=== PATIENT | male | born 1965 | race Caucasian/White ===

== ENCOUNTER 2019-08-25 13:11 | Emergency (ER) | payer MEDICAID ==
[~2019-08-25] VITALS: Ht 177.8 cm; Wt 81.8 kg
--- NOTE | 2019-08-25 13:37 | NUR ---
RELIEVING RN FOR BREAK, PT C/O RT 3RD FINGER SWELLING WITH DARK GROWTH [id number], WAITING FOR REFERRAL TO SURGEON, PT WOULD LIKE IT REMOVED
[2019-08-25] MEDS ORDERED: LIDOcaine 1% w/EPI 1:200,000 injection 10mL vial IM ONE (13:50)
[2019-08-25] MEDS ORDERED: bacitracin 15gm ointment TP ONE (13:50)
[2019-08-25] MEDS ORDERED: LIDOcaine 1% W/epiNEPHrine 1:200,000 10ml vial IJ ONE (14:55)
[2019-08-25 15:34] VITALS: BP 125/99
--- NOTE | 2019-08-25 15:36 | NUR ---
dressed wound to left 3rd digit with bacitricin, 2x2 dylan and azael, pt luz elena esparza, dc'd home
== END 2019-08-25 15:36 | disposition home or self-care (01) ==
LOC: ER 13:12
PROC: 0HBFXZZ Excision of Right Hand Skin, External Approach (ICD-10-PCS; principal; 2019-08-25)
DX: L98.0 Pyogenic granuloma (principal); M79.644 Pain in right finger(s)
CPT/HCPCS: 11420; 99284

== ENCOUNTER 2020-09-05 09:47 | Inpatient (IN) | payer MEDICAID ==
[~2020-09-05] VITALS: Ht 177.8 cm; Wt 72.0 kg
[2020-09-05] MEDS ORDERED: normal saline 1000ML IV soln IVB ONE (10:20)
[2020-09-05] MEDS ORDERED: cloNIDine 0.1 mg tablet PO ONE (10:20)
[2020-09-05 11:05] LABS: BASOPHILS % (AUTO) 0.4 % (0-1); EOSINOPHILS # (AUTO) 0.1 X10'3 (0-0.9); EOSINOPHILS % (AUTO) 1.2 % (0-6); HEMATOCRIT 42.5 % (42.0-52.0); HEMOGLOBIN 14.1 g/dl (14.0-17.9); LYMPHOCYTES # (AUTO) 1.8 X10'3 (1.1-4.8); LYMPHOCYTES % (AUTO) 20.8 % (21-51); MEAN CORPUSCULAR HEMOGLOBIN 27.2 PG (27.0-31.0); MEAN CORPUSCULAR HGB CONC 33.2 g/dL (33.0-36.5); MEAN PLATELET VOLUME 7.9 FL (7.4-10.4); MONOCYTES # (AUTO) 0.8 X10'3 (0-0.9); MONOCYTES % (AUTO) 9.9 % (2-12); NEUTROPHILS # (AUTO) 5.8 X10'3 (1.8-7.7); NEUTROPHILS % (AUTO) 67.7 % (42-75); PLATELET COUNT 283 X10'3 (140-440); RED BLOOD COUNT 5.18 X10'6 (4.70-6.10); RED CELL DISTRIBUTION WIDTH 16.3 % (11.5-14.5); WHITE BLOOD COUNT 8.5 X10'3 (4.5-11.0)
[2020-09-05 11:23] LABS: ALANINE AMINOTRANSFERASE 20 U/L (12-78); ALBUMIN 3.8 G/DL (3.4-5.0); ALBUMIN/GLOBULIN RATIO 0.9 (1.1-1.5); ALKALINE PHOSPHATASE 94 IU/L (46-116); ANION GAP 7 (8-16); ASPARTATE AMINO TRANSFERASE 19 U/L (10-37); BILIRUBIN,TOTAL 0.5 MG/DL (0.1-1.0); BLOOD UREA NITROGEN 19 MG/DL (7-18); BUN/CREATININE RATIO 12.8 (5.4-32.0); CALCIUM 9.8 MG/DL (8.5-10.1); CHLORIDE 101 MMOL/L (99-107); CREATININE 1.48 MG/DL (0.60-1.10); POTASSIUM 3.8 MMOL/L (3.5-5.1); SODIUM 137 MMOL/L (135-145); TOTAL CARBON DIOXIDE 28.6 MMOL/L (24-32); TOTAL PROTEIN 8.1 G/DL (6.4-8.2); eGFR 49 ML/MIN
[2020-09-05 11:28] LABS: GLUCOSE 130 MG/DL (70-104)
[2020-09-05] MEDS ORDERED: iohexol 350MG/ML 100ml bottle IV ONE (12:08)
[2020-09-05] MEDS ORDERED: aspirin 325mg tablet PO ONE (12:55)
[2020-09-05] MEDS ORDERED: ENZY1CAP5 PO (13:57)
[2020-09-05] MEDS ORDERED: ALPH1TAB4 PO (13:57)
[2020-09-05] MEDS ORDERED: MULT-1085 PO (13:57)
[2020-09-05] MEDS ORDERED: TRIA16.911 NS (13:57)
[2020-09-05] MEDS ORDERED: AZEL137S4 NS (13:57)
[2020-09-05] MEDS ORDERED: TURM500C4 PO (13:57)
[2020-09-05] MEDS ORDERED: cloNIDine 0.1 mg tablet PO STA (14:30)
--- NOTE | 2020-09-05 14:31 | NUR ---
VIRTAL SIGNS RECHECKED WHILE DR. TY AT BEDSIDE,RECEIVED NEW ORDER.
[2020-09-05] MEDS ORDERED: morphine 2 MG/ML inj. syringe IV PRN ×3 (14:35→16:05)
--- NOTE | 2020-09-05 14:41 | NUR ---
tele neuro ordered,Story [employer]eller made aware.
--- NOTE | 2020-09-05 14:43 | NUR ---
verbal order received for hydralazine 10mg from Dr. Glass.
[2020-09-05] MEDS ORDERED: hydrALAZINE 20mg/ml inj. IV STA (14:44)
[2020-09-05] MEDS ORDERED: diltiazem-NS 100mg/100ml 100 ML IV ONE (14:50)
--- NOTE | 2020-09-05 15:07 | NUR ---
hydralazieladio reyes dc'zane per Aamir CRISTOBAL.
[2020-09-05] MEDS ORDERED: labetalol 20mg/4ml (5mg/ml) syringe IV ONE (15:50)
[2020-09-05 16:05] LABS: D-DIMER 0.35 MG/L FEU (0-0.50)
[2020-09-05] MEDS ORDERED: acetaminophen 325mg tablet PO PRN (16:05)
[2020-09-05] MEDS ORDERED: ondansetron/PF 4mg/2ml inj IV PRN (16:05)
[2020-09-05] MEDS ORDERED: mag hydrox/Alum hydrox/simeth 30ml oral suspension PO PRN (16:05)
[2020-09-05] MEDS ORDERED: hydrALAZINE 20mg/ml inj. IV PRN (16:05)
[2020-09-05] MEDS ORDERED: HYDROcodone/acetaminophen 10/325mg tab PO PRN (16:05)
[2020-09-05] MEDS ORDERED: HYDROcodone/acetaminophen 5mg/325mg tablet PO PRN (16:05)
[2020-09-05] MEDS ORDERED: magnesium hydroxide 30ml (MOM) UD suspension PO PRN (16:05)
[2020-09-05 16:17] LABS: TOTAL PROTEIN,URINE RANDOM 59.7 MG/DL
[2020-09-05 16:20] LABS: URINE AMPHETAMINE SCREEN NEGATIVE (Neg); URINE BARBITUATE SCREEN NEGATIVE (Neg); URINE BENZODIAZEPINES SCREEN NEGATIVE (Neg); URINE CANNABINOID SCREEN NEGATIVE (Neg); URINE COCAINE SCREEN NEGATIVE (Neg); URINE METHADONE SCREEN NEGATIVE (Neg); URINE OPIATE SCREEN NEGATIVE (Neg); URINE PHENCYCLIDINE SCREEN NEGATIVE (Neg)
[2020-09-05 16:52] LABS: CLARITY,URINE CLEAR (Clear); COLOR,URINE STRAW (Yellow); GLUCOSE, URINE NEGATIVE (Neg); KETONES,URINE NEGATIVE (Neg); LEUKOCYTE ESTERASE ,URINE NEGATIVE (Neg); NITRITES, URINE NEGATIVE (Neg); OCCULT BLOOD,URINE TRACE-LYSED (Neg); PROTEIN,URINE 30 mg/dl (Neg); UROBILINOGEN,URINE 0.2 E.U/dL (0.2-1.0)
[2020-09-05 16:53] LABS: UA COLLECTION TYPE URINAL
[2020-09-05 17:00] LABS: BACTERIA,URINE NONE SEEN /HPF (Neg); MUCUS STRANDS NONE SEEN /LPF (Neg); RBC,URINE 0-2 /HPF (0-2); SQUAMOUS EPITHELIAL CELL,UR NONE SEEN /LPF (FEW); WBC,URINE NONE SEEN /HPF (0-4)
[2020-09-05 17:40] VITALS: BP 161/102
[2020-09-05 18:00] VITALS: BP 140/84
--- NOTE | 2020-09-05 18:11 | NUR ---
Problems reprioritized. Patient report given, questions answered & plan of care reviewed with Anupama CUETO.
--- NOTE | 2020-09-05 18:46 | NUR ---
Patient in room PCU 3023. I have received report from Tess CUETO and had the opportunity to ask questions and assume patient care.
[2020-09-05 22:00] VITALS: BP 150/91
[2020-09-05] MEDS: cloNIDine 0.1 mg tablet PO SCH (23:11)
[2020-09-06 02:00] VITALS: BP 131/77
[2020-09-06 06:00] VITALS: BP 145/95
[2020-09-06 06:09] LABS: ALBUMIN 3.1 G/DL (3.4-5.0); ANION GAP 6 (8-16); BLOOD UREA NITROGEN 23 MG/DL (7-18); BUN/CREATININE RATIO 15.5 (5.4-32.0); CHLORIDE 103 MMOL/L (99-107); CREATININE 1.48 MG/DL (0.60-1.10); GLUCOSE 93 MG/DL (70-104); POTASSIUM 3.6 MMOL/L (3.5-5.1); SODIUM 137 MMOL/L (135-145); TOTAL CARBON DIOXIDE 28.4 MMOL/L (24-32); eGFR 49 ML/MIN
[2020-09-06 06:11] LABS: RED CELL DISTRIBUTION WIDTH 16.8 % (11.5-14.5)
[2020-09-06 06:12] LABS: BASOPHILS % (AUTO) 0.6 % (0-1); EOSINOPHILS # (AUTO) 0.2 X10'3 (0-0.9); HEMATOCRIT 34.9 % (42.0-52.0); HEMOGLOBIN 11.6 g/dl (14.0-17.9); LYMPHOCYTES % (AUTO) 25.2 % (21-51); MEAN CORPUSCULAR HEMOGLOBIN 27.4 PG (27.0-31.0); MEAN CORPUSCULAR HGB CONC 33.1 g/dL (33.0-36.5); MEAN CORPUSCULAR VOLUME 82.8 FL (78-98); MEAN PLATELET VOLUME 8.8 FL (7.4-10.4); MONOCYTES # (AUTO) 0.8 X10'3 (0-0.9); MONOCYTES % (AUTO) 10.1 % (2-12); NEUTROPHILS # (AUTO) 4.8 X10'3 (1.8-7.7); NEUTROPHILS % (AUTO) 61.1 % (42-75); PLATELET COUNT 245 X10'3 (140-440); RED BLOOD COUNT 4.22 X10'6 (4.70-6.10); WHITE BLOOD COUNT 7.9 X10'3 (4.5-11.0)
--- NOTE | 2020-09-06 06:27 | NUR ---
Problems reprioritized. Patient report given, questions answered & plan of care reviewed with Tess CUETO.
[2020-09-06] MEDS: aspirin 81mg tablet.DR PO SCH (07:14)
[2020-09-06] MEDS: cloNIDine 0.1 mg tablet PO SCH ×2 (07:14→17:10)
[2020-09-06] MEDS: nitroGLYCERIN 0.4mg/hour patch TD SCH (07:22)
[2020-09-06] MEDS: acetaminophen 325mg tablet PO PRN (10:51)
[2020-09-06 11:00] VITALS: BP 141/88
--- NOTE | 2020-09-06 11:54 | NUR ---
PAGER ID: [phone] MESSAGE: [phone] Mary Ace RN says you have talked to Neuro MD. Are we still doing the tele consult? Tess [phone]
[2020-09-06] MEDS ORDERED: diphenhydrAMINE 50 mg/ml inj IV ONE (12:40)
[2020-09-06] MEDS ORDERED: ketorolac tromethamine 15mg/ml inj. IV ONE (12:40)
[2020-09-06] MEDS ORDERED: ondansetron/PF 4mg/2ml inj IV ONE (12:40)
[2020-09-06] MEDS ORDERED: levoFLOXACIN 500mg tablet PO ONE (13:35)
[2020-09-06 15:00] VITALS: BP 138/87
--- NOTE | 2020-09-06 15:15 | NUR ---
PAGER ID: [phone] MESSAGE: [phone] Waylon cAe. Patient still having MELVIN despite migraine cocktail. Now c/o congestion as well. Per neurologist notes, next step is 1g valproic acid IV over 5mins. Pls advise. Tess [phone]
[2020-09-06] MEDS ORDERED: DEXTROSE 5% IV ONE (15:50)
[2020-09-06] MEDS ORDERED: WATER IV ONE (15:50)
[2020-09-06] MEDS ORDERED: VALPROATE SOD IV ONE (15:50)
[2020-09-06 18:00] VITALS: BP 154/98
--- NOTE | 2020-09-06 18:33 | NUR ---
Patient in room PCU 3023. I have received report from Tess CUETO and had the opportunity to ask questions and assume patient care.
--- NOTE | 2020-09-06 18:33 | NUR ---
Problems reprioritized. Patient report given, questions answered & plan of care reviewed with Sean CUETO.
--- NOTE | 2020-09-06 18:34 | NUR ---
Patient in room PCU 3023. I have received report from Tess CUETO and had the opportunity to ask questions and assume patient care.
--- NOTE | 2020-09-06 18:54 | NUR ---
PAGER ID: [phone] MESSAGE: [phone]. Ronen Ace. Pt has headaches still after valproic treatment. can we do the Dexamethasone 10mg 1x per neurologist recommendation? Sean CUETO [phone]
[2020-09-06] MEDS ORDERED: dexamethasone sod phosphate 10mg/ml inj IV STA (19:28)
[2020-09-06 22:00] VITALS: BP 138/90
[2020-09-07] MEDS: cloNIDine 0.1 mg tablet PO SCH ×4 (00:51→23:28)
[2020-09-07 02:00] VITALS: BP 142/91
[2020-09-07 06:00] VITALS: BP 148/96
[2020-09-07 06:12] LABS: BASOPHILS % (AUTO) 0.2 % (0-1); EOSINOPHILS % (AUTO) 0.1 % (0-6); HEMOGLOBIN 12.5 g/dl (14.0-17.9); LYMPHOCYTES # (AUTO) 1.1 X10'3 (1.1-4.8); LYMPHOCYTES % (AUTO) 20.5 % (21-51); MEAN CORPUSCULAR HEMOGLOBIN 28.1 PG (27.0-31.0); MEAN CORPUSCULAR HGB CONC 33.9 g/dL (33.0-36.5); MEAN CORPUSCULAR VOLUME 83.1 FL (78-98); MEAN PLATELET VOLUME 8.5 FL (7.4-10.4); MONOCYTES # (AUTO) 0.1 X10'3 (0-0.9); MONOCYTES % (AUTO) 1.9 % (2-12); NEUTROPHILS % (AUTO) 77.3 % (42-75); PLATELET COUNT 250 X10'3 (140-440); RED BLOOD COUNT 4.46 X10'6 (4.70-6.10); RED CELL DISTRIBUTION WIDTH 16.5 % (11.5-14.5); WHITE BLOOD COUNT 5.2 X10'3 (4.5-11.0)
--- NOTE | 2020-09-07 06:13 | NUR ---
Problems reprioritized. Patient report given, questions answered & plan of care reviewed with Amaris CUETO.
[2020-09-07 06:31] LABS: ALBUMIN 3.1 G/DL (3.4-5.0); ANION GAP 8 (8-16); BLOOD UREA NITROGEN 28 MG/DL (7-18); BUN/CREATININE RATIO 15.4 (5.4-32.0); CALCIUM 9.5 MG/DL (8.5-10.1); CHLORIDE 103 MMOL/L (99-107); CREATININE 1.82 MG/DL (0.60-1.10); GLUCOSE 141 MG/DL (70-104); POTASSIUM 4.3 MMOL/L (3.5-5.1); SODIUM 137 MMOL/L (135-145); TOTAL CARBON DIOXIDE 26.5 MMOL/L (24-32); eGFR 39 ML/MIN
--- NOTE | 2020-09-07 06:31 | NUR ---
I had a Student Nurse this shift and agree with all their assessments and charting while overlooking and monitoring the student.
--- NOTE | 2020-09-07 06:45 | NUR ---
Patient in room PCU 3023. I have received report from RN Sean/ student and had the opportunity to ask questions and assume patient care. Pt was NPO at midnight for scheduled Nuc medicine and renal ultrasound, however ate banana prior to my shift, will message
[2020-09-07] MEDS: aspirin 81mg tablet.DR PO SCH (08:00)
[2020-09-07 08:02] LABS: TOTAL CELLS COUNTED 100
[2020-09-07 08:04] LABS: PLATELET ESTIMATE NORMAL
[2020-09-07] MEDS: nitroGLYCERIN 0.4mg/hour patch TD SCH (08:10)
[2020-09-07 11:00] VITALS: BP 147/95
[2020-09-07] MEDS ORDERED: acetylcysteine 200 MG/ml 4ml vial PO ONE (11:00)
[2020-09-07] MEDS ORDERED: levoFLOXACIN 500mg tablet PO SCH (11:00)
[2020-09-07] MEDS ORDERED: sodium bicarbonate (8.4%) inj. 150 MEQ in dextrose 5%-water 1,000 ML IV ONE (11:30)
[2020-09-07] MEDS: amLODIPine 5mg tablet PO SCH (14:37)
[2020-09-07] MEDS: acetaminophen 325mg tablet PO PRN (14:38)
[2020-09-07 15:00] VITALS: BP 130/80
[2020-09-07 15:03] LABS: ALBUMIN 3.2 G/DL (3.4-5.0); ANION GAP 5 (8-16); BLOOD UREA NITROGEN 30 MG/DL (7-18); BUN/CREATININE RATIO 15.8 (5.4-32.0); CALCIUM 9.4 MG/DL (8.5-10.1); CHLORIDE 101 MMOL/L (99-107); GLUCOSE 128 MG/DL (70-104); SODIUM 137 MMOL/L (135-145); TOTAL CARBON DIOXIDE 30.8 MMOL/L (24-32); eGFR 37 ML/MIN
[2020-09-07 18:00] VITALS: BP 132/91
--- NOTE | 2020-09-07 18:33 | NUR ---
Patient in room PCU 3023. I have received report from Amaris CUETO and had the opportunity to ask questions and assume patient care.
[2020-09-07] MEDS ORDERED: tizanidine 4mg tablet PO PRN (18:50)
--- NOTE | 2020-09-07 19:29 | NUR ---
Problems reprioritized. Patient report given, questions answered & plan of care reviewed with
[2020-09-07] MEDS ORDERED: acetylcysteine 200 MG/ml 4ml vial PO SCH (20:00)
[2020-09-07 22:00] VITALS: BP 104/62
[2020-09-08 02:00] VITALS: BP 136/88
[2020-09-08 06:00] VITALS: BP 147/93
[2020-09-08 06:09] LABS: BASOPHILS % (AUTO) 0.3 % (0-1); EOSINOPHILS # (AUTO) 0.1 X10'3 (0-0.9); EOSINOPHILS % (AUTO) 0.9 % (0-6); HEMATOCRIT 35.7 % (42.0-52.0); LYMPHOCYTES # (AUTO) 2.4 X10'3 (1.1-4.8); LYMPHOCYTES % (AUTO) 31.8 % (21-51); MEAN CORPUSCULAR HEMOGLOBIN 27.9 PG (27.0-31.0); MEAN CORPUSCULAR HGB CONC 33.5 g/dL (33.0-36.5); MEAN CORPUSCULAR VOLUME 83.5 FL (78-98); MEAN PLATELET VOLUME 8.4 FL (7.4-10.4); MONOCYTES # (AUTO) 0.7 X10'3 (0-0.9); MONOCYTES % (AUTO) 9.4 % (2-12); NEUTROPHILS # (AUTO) 4.3 X10'3 (1.8-7.7); NEUTROPHILS % (AUTO) 57.6 % (42-75); PLATELET COUNT 257 X10'3 (140-440); RED BLOOD COUNT 4.28 X10'6 (4.70-6.10); RED CELL DISTRIBUTION WIDTH 17.1 % (11.5-14.5); WHITE BLOOD COUNT 7.6 X10'3 (4.5-11.0)
--- NOTE | 2020-09-08 06:20 | NUR ---
Problems reprioritized. Patient report given, questions answered & plan of care reviewed with Amaris CUETO.
[2020-09-08 06:31] LABS: ALBUMIN 3.1 G/DL (3.4-5.0); ANION GAP 6 (8-16); BLOOD UREA NITROGEN 31 MG/DL (7-18); BUN/CREATININE RATIO 16.8 (5.4-32.0); CHLORIDE 103 MMOL/L (99-107); CREATININE 1.85 MG/DL (0.60-1.10); GLUCOSE 95 MG/DL (70-104); POTASSIUM 3.4 MMOL/L (3.5-5.1); SODIUM 141 MMOL/L (135-145); TOTAL CARBON DIOXIDE 32.4 MMOL/L (24-32); eGFR 38 ML/MIN
[2020-09-08 06:42] LABS: CLARITY,URINE CLEAR (Clear); COLOR,URINE YELLOW (Yellow); GLUCOSE, URINE NEGATIVE (Neg); KETONES,URINE NEGATIVE (Neg); LEUKOCYTE ESTERASE ,URINE NEGATIVE (Neg); NITRITES, URINE NEGATIVE (Neg); OCCULT BLOOD,URINE NEGATIVE (Neg); PROTEIN,URINE NEGATIVE (Neg); UROBILINOGEN,URINE 0.2 E.U/dL (0.2-1.0)
[2020-09-08 06:43] LABS: UA COLLECTION TYPE CLN CATCH MIDSTREAM
[2020-09-08 06:45] LABS: TOTAL PROTEIN,URINE RANDOM 12.6 MG/DL
[2020-09-08] MEDS: cloNIDine 0.1 mg tablet PO SCH (09:00)
[2020-09-08] MEDS: aspirin 81mg tablet.DR PO SCH (09:00)
[2020-09-08 09:01] VITALS: BP_SYST 150
[2020-09-08] MEDS: amLODIPine 5mg tablet PO SCH (09:01)
[2020-09-08] MEDS: nitroGLYCERIN 0.4mg/hour patch TD SCH (09:02)
[2020-09-08] MEDS ORDERED: METO-395 PO (10:16)
[2020-09-08] MEDS ORDERED: BACL-11 PO (10:16)
[2020-09-08] MEDS ORDERED: LEVO500T89 PO (10:16)
[2020-09-08] MEDS ORDERED: ASPI-1071 PO (10:16)
[2020-09-08 10:40] LABS: CHOL/HDL RATIO 3.1 (0.00-4.99); CHOLESTEROL 143 MG/DL (0-200); HDL CHOLESTEROL 46 MG/DL (35-60); LDL CHOLESTEROL 80 MG/DL (50-100); TRIGLYCERIDES 112 MG/DL (20-135)
--- NOTE | 2020-09-08 11:08 | NUR ---
spoke with DR. Glass, confirmed lipid panel to be added on to AM labs, and confirmed with lab. Waiting for pending results and will page DR when results are available for discharge. Pt has a list of requests for discharge paper work and is requesting notes from . I will only print up appropriate information for pt discharge
[2020-09-08] MEDS ORDERED: CLON0.1T2 PO (11:18)
[2020-09-09 10:31] LABS: IMMUNOGLOBULIN A, QN, SERUM 94 mg/dL (90-386); IMMUNOGLOBULIN G, QN, SERUM 1029 mg/dL (603-1613); IMMUNOGLOBULIN M, QN, SERUM 329 mg/dL (20-172)
[2020-09-09 15:58] LABS: A/G RATIO 0.9 (0.7-1.7); GAMMA GLOBULIN 1.3 g/dL (0.4-1.8); GLOBULIN, TOTAL 3.3 g/dL (2.2-3.9); M-SPIKE Not Observed g/dL (Not Observed); PROTEIN, TOTAL, SERUM 6.3 g/dL (6.0-8.5)
== END 2020-09-08 12:20 | disposition home or self-care (01) | DRG 190 ==
LOC: ER 09:48 → ED HOLD 16:04 → EDBEDREQ 16:55 → PCU 3S 17:41
PROVIDERS: ADMIT Internal Medicine; ATTEND Internal Medicine
PROC: B3251ZZ Computerized Tomography (CT Scan) of Bilateral Common Carotid Arteries using Low Osmolar Contrast (ICD-10-PCS; 2020-09-05)
PROC: B32G1ZZ Computerized Tomography (CT Scan) of Bilateral Vertebral Arteries using Low Osmolar Contrast (ICD-10-PCS; 2020-09-05)
PROC: B3281ZZ Computerized Tomography (CT Scan) of Bilateral Internal Carotid Arteries using Low Osmolar Contrast (ICD-10-PCS; 2020-09-05)
PROC: CB121ZZ Planar Nuclear Medicine Imaging of Lungs and Bronchi using Technetium 99m (Tc-99m) (ICD-10-PCS; principal; 2020-09-06)
PROC: CT131ZZ Planar Nuclear Medicine Imaging of Kidneys, Ureters and Bladder using Technetium 99m (Tc-99m) (ICD-10-PCS; 2020-09-07)
DX: I21.9 Acute myocardial infarction, unspecified (principal); I16.1 Hypertensive emergency; J01.00 Acute maxillary sinusitis, unspecified; K40.20 Bilateral inguinal hernia, without obstruction or gangrene, not specified as recurrent; N18.30 Chronic kidney disease, stage 3 unspecified; I12.9 Hypertensive chronic kidney disease with stage 1 through stage 4 chronic kidney disease, or unspecified chronic kidney disease; N17.9 Acute kidney failure, unspecified; Z79.82 Long term (current) use of aspirin; Z81.8 Family history of other mental and behavioral disorders; Z79.899 Other long term (current) drug therapy; Z88.2 Allergy status to sulfonamides
CPT/HCPCS: 36415; 70496; 71045; 74176; 78580; 78707; 80048; 80053; 80061; 80305; 81001; 81003; 82088; 82570; 82784; 83880; 84133; 84155; 84156; 84165; 84166; 84244; 84300; 84484; 84540; 85007; 85025; 85379; 85651; 87081; 87635; 93005; 93306; 93970; 93975; 99285; A9540; A9562; C9803; G0378; J1100; J1200; J1885; J2270; J2405; J3490; J7030; J7060; Q9967

== ENCOUNTER 2020-10-11 22:14 | Emergency (ER) | payer MEDICAID ==
[~2020-10-11] VITALS: Ht 177.8 cm; Wt 68.2 kg
[~2020-10-11 22:14] MED LIST: ALPH1TAB4 PO; ASPI-1071 PO; AZEL137S4 NS; BACL-11 PO; CLON0.1T2 PO; ENZY1CAP5 PO; LEVO500T89 PO; METO-395 PO; MULT-1085 PO; TRIA16.911 NS; TURM500C4 PO
[2020-10-11 23:50] VITALS: BP 148/87
== END 2020-10-11 23:35 | disposition home or self-care (01) ==
LOC: ER 22:15
DX: I10 Essential (primary) hypertension (principal); Z60.9 Problem related to social environment, unspecified; Z88.2 Allergy status to sulfonamides; Z79.82 Long term (current) use of aspirin; Z79.2 Long term (current) use of antibiotics; Z79.899 Other long term (current) drug therapy
CPT/HCPCS: 93005; 99283

== ENCOUNTER 2020-10-23 05:54 | Emergency (ER) | payer MEDICAID ==
[~2020-10-23] VITALS: Ht 177.8 cm; Wt 68.2 kg
[2020-10-23] MEDS ORDERED: nitroGLYCERIN 0.4mg SUBLingual tab SL PRN (06:05)
--- NOTE | 2020-10-23 06:26 | NUR ---
DENIES CHEST PAIN AT THIS TIME.
[2020-10-23 06:27] LABS: BASOPHILS % (AUTO) 0.5 % (0-1); EOSINOPHILS # (AUTO) 0.4 X10'3 (0-0.9); EOSINOPHILS % (AUTO) 4.6 % (0-6); HEMATOCRIT 43.3 % (42.0-52.0); HEMOGLOBIN 14.8 g/dl (14.0-17.9); LYMPHOCYTES # (AUTO) 2.9 X10'3 (1.1-4.8); LYMPHOCYTES % (AUTO) 31.2 % (21-51); MEAN CORPUSCULAR HEMOGLOBIN 28.7 PG (27.0-31.0); MEAN CORPUSCULAR HGB CONC 34.3 g/dL (33.0-36.5); MEAN CORPUSCULAR VOLUME 83.7 FL (78-98); MEAN PLATELET VOLUME 8.2 FL (7.4-10.4); MONOCYTES # (AUTO) 0.7 X10'3 (0-0.9); MONOCYTES % (AUTO) 7.6 % (2-12); NEUTROPHILS # (AUTO) 5.1 X10'3 (1.8-7.7); NEUTROPHILS % (AUTO) 56.1 % (42-75); PLATELET COUNT 284 X10'3 (140-440); RED BLOOD COUNT 5.17 X10'6 (4.70-6.10); RED CELL DISTRIBUTION WIDTH 14.8 % (11.5-14.5); WHITE BLOOD COUNT 9.2 X10'3 (4.5-11.0)
[2020-10-23 06:35] LABS: ALANINE AMINOTRANSFERASE 32 U/L (12-78); ALBUMIN 4.3 G/DL (3.4-5.0); ALBUMIN/GLOBULIN RATIO 1.1 (1.1-1.5); ALKALINE PHOSPHATASE 70 IU/L (46-116); ANION GAP 6 (8-16); ASPARTATE AMINO TRANSFERASE 18 U/L (10-37); BILIRUBIN,TOTAL 0.4 MG/DL (0.1-1.0); BLOOD UREA NITROGEN 19 MG/DL (7-18); BUN/CREATININE RATIO 14.6 (5.4-32.0); CALCIUM 9.7 MG/DL (8.5-10.1); CHLORIDE 103 MMOL/L (99-107); POTASSIUM 3.8 MMOL/L (3.5-5.1); SODIUM 140 MMOL/L (135-145); TOTAL PROTEIN 8.2 G/DL (6.4-8.2); eGFR 57 ML/MIN
[2020-10-23 06:48] LABS: GLUCOSE 108 MG/DL (70-104)
--- NOTE | 2020-10-23 07:49 | NUR ---
PATEINT DENIES CHEST PAIN AT THIS TIME.
--- NOTE | 2020-10-23 07:54 | NUR ---
GIVEN BREAKFAST,OK'D BY DR. BENTLEY.
--- NOTE | 2020-10-23 08:58 | NUR ---
blood sample for troponin drawn at this time.
[2020-10-23 10:26] VITALS: BP 156/92
== END 2020-10-23 10:29 | disposition home or self-care (01) ==
LOC: ER 05:55
DX: R07.9 Chest pain, unspecified (principal); I12.9 Hypertensive chronic kidney disease with stage 1 through stage 4 chronic kidney disease, or unspecified chronic kidney disease; N18.9 Chronic kidney disease, unspecified; Z88.2 Allergy status to sulfonamides; Z79.899 Other long term (current) drug therapy
CPT/HCPCS: 36415; 71045; 80053; 83880; 84484; 85025; 93005; 99285

== ENCOUNTER 2020-10-28 01:44 | Emergency (ER) | payer MEDICAID ==
[~2020-10-28] VITALS: Ht 177.8 cm; Wt 68.2 kg
[2020-10-28 02:34] LABS: BASOPHILS % (AUTO) 0.5 % (0-1); EOSINOPHILS # (AUTO) 0.4 X10'3 (0-0.9); HEMATOCRIT 40.3 % (42.0-52.0); HEMOGLOBIN 13.6 g/dl (14.0-17.9); LYMPHOCYTES # (AUTO) 2.4 X10'3 (1.1-4.8); LYMPHOCYTES % (AUTO) 27.8 % (21-51); MEAN CORPUSCULAR HEMOGLOBIN 28.1 PG (27.0-31.0); MEAN CORPUSCULAR HGB CONC 33.7 g/dL (33.0-36.5); MEAN CORPUSCULAR VOLUME 83.2 FL (78-98); MEAN PLATELET VOLUME 7.7 FL (7.4-10.4); MONOCYTES # (AUTO) 0.8 X10'3 (0-0.9); MONOCYTES % (AUTO) 9.5 % (2-12); NEUTROPHILS # (AUTO) 4.9 X10'3 (1.8-7.7); NEUTROPHILS % (AUTO) 57.2 % (42-75); PLATELET COUNT 261 X10'3 (140-440); RED BLOOD COUNT 4.84 X10'6 (4.70-6.10); RED CELL DISTRIBUTION WIDTH 15.2 % (11.5-14.5); WHITE BLOOD COUNT 8.6 X10'3 (4.5-11.0)
[2020-10-28] MEDS: aspirin 81mg tab.chew PO ONE ×2 (02:38→02:46)
[2020-10-28 02:47] LABS: PARTIAL THROMBOPLASTIN TIME 29 SECONDS (22-32)
[2020-10-28 02:51] LABS: ALANINE AMINOTRANSFERASE 36 U/L (12-78); ALBUMIN 3.9 G/DL (3.4-5.0); ALBUMIN/GLOBULIN RATIO 1.1 (1.1-1.5); ALKALINE PHOSPHATASE 67 IU/L (46-116); ANION GAP 6 (8-16); ASPARTATE AMINO TRANSFERASE 23 U/L (10-37); BILIRUBIN,TOTAL 0.3 MG/DL (0.1-1.0); BLOOD UREA NITROGEN 18 MG/DL (7-18); BUN/CREATININE RATIO 12.8 (5.4-32.0); CALCIUM 9.2 MG/DL (8.5-10.1); CHLORIDE 106 MMOL/L (99-107); CREATININE 1.41 MG/DL (0.60-1.10); GLUCOSE 99 MG/DL (70-104); POTASSIUM 3.8 MMOL/L (3.5-5.1); SODIUM 143 MMOL/L (135-145); TOTAL CARBON DIOXIDE 30.8 MMOL/L (24-32); TOTAL PROTEIN 7.6 G/DL (6.4-8.2); eGFR 52 ML/MIN
[2020-10-28 03:01] LABS: MAGNESIUM 2.3 MG/DL (1.5-2.4)
[2020-10-28] MEDS ORDERED: magnesium oxide 400mg tablet PO ONE (03:35)
[2020-10-28 03:48] VITALS: BP 172/110
== END 2020-10-28 03:51 | disposition home or self-care (01) ==
LOC: ER 01:45
DX: R00.2 Palpitations (principal); I10 Essential (primary) hypertension; N18.9 Chronic kidney disease, unspecified; Z60.9 Problem related to social environment, unspecified; Z79.2 Long term (current) use of antibiotics; Z79.82 Long term (current) use of aspirin; Z79.899 Other long term (current) drug therapy; Z88.2 Allergy status to sulfonamides
CPT/HCPCS: 36415; 71045; 80053; 83735; 83880; 84443; 84484; 85025; 85610; 85730; 93005; 99285

== ENCOUNTER 2020-11-01 23:33 | Emergency (ER) | payer MEDICAID ==
[~2020-11-01] VITALS: Ht 177.8 cm; Wt 68.1 kg
[2020-11-02 00:04] LABS: BASOPHILS # (AUTO) 0.1 X10'3 (0-0.2); BASOPHILS % (AUTO) 1.4 % (0-1); EOSINOPHILS # (AUTO) 0.4 X10'3 (0-0.9); EOSINOPHILS % (AUTO) 4.3 % (0-6); HEMOGLOBIN 13.3 g/dl (14.0-17.9); LYMPHOCYTES # (AUTO) 2.7 X10'3 (1.1-4.8); MEAN CORPUSCULAR HEMOGLOBIN 28.8 PG (27.0-31.0); MEAN CORPUSCULAR HGB CONC 34.1 g/dL (33.0-36.5); MEAN CORPUSCULAR VOLUME 84.3 FL (78-98); MEAN PLATELET VOLUME 7.9 FL (7.4-10.4); MONOCYTES # (AUTO) 0.9 X10'3 (0-0.9); MONOCYTES % (AUTO) 10.4 % (2-12); NEUTROPHILS # (AUTO) 4.5 X10'3 (1.8-7.7); NEUTROPHILS % (AUTO) 51.9 % (42-75); PLATELET COUNT 261 X10'3 (140-440); RED BLOOD COUNT 4.63 X10'6 (4.70-6.10); WHITE BLOOD COUNT 8.6 X10'3 (4.5-11.0)
[2020-11-02 00:17] LABS: ALANINE AMINOTRANSFERASE 29 U/L (12-78); ALBUMIN 3.9 G/DL (3.4-5.0); ALBUMIN/GLOBULIN RATIO 1.1 (1.1-1.5); ALKALINE PHOSPHATASE 65 IU/L (46-116); ANION GAP 5 (8-16); ASPARTATE AMINO TRANSFERASE 17 U/L (10-37); BILIRUBIN,TOTAL 0.7 MG/DL (0.1-1.0); BLOOD UREA NITROGEN 20 MG/DL (7-18); BUN/CREATININE RATIO 14.4 (5.4-32.0); CALCIUM 9.4 MG/DL (8.5-10.1); CHLORIDE 104 MMOL/L (99-107); CREATININE 1.39 MG/DL (0.60-1.10); GLUCOSE 109 MG/DL (70-104); POTASSIUM 3.9 MMOL/L (3.5-5.1); SODIUM 140 MMOL/L (135-145); TOTAL CARBON DIOXIDE 30.7 MMOL/L (24-32); TOTAL PROTEIN 7.4 G/DL (6.4-8.2); eGFR 53 ML/MIN
[2020-11-02 01:56] VITALS: BP 144/89
== END 2020-11-02 02:15 | disposition home or self-care (01) ==
LOC: ER 23:33
DX: I49.3 Ventricular premature depolarization (principal); R00.2 Palpitations; R07.89 Other chest pain; R42 Dizziness and giddiness; I12.9 Hypertensive chronic kidney disease with stage 1 through stage 4 chronic kidney disease, or unspecified chronic kidney disease; N18.9 Chronic kidney disease, unspecified; F41.9 Anxiety disorder, unspecified; Z60.2 Problems related to living alone; Z88.2 Allergy status to sulfonamides; Z79.82 Long term (current) use of aspirin; Z79.2 Long term (current) use of antibiotics; Z79.899 Other long term (current) drug therapy
CPT/HCPCS: 36415; 80053; 83880; 84484; 85025; 93005; 99284

== ENCOUNTER 2021-03-26 22:25 | Emergency (ER) | payer MEDICAID ==
[~2021-03-26] VITALS: Ht 177.8 cm; Wt 72.7 kg
[2021-03-26 23:07] LABS: BASOPHILS # (AUTO) 0.1 X10'3 (0-0.2); BASOPHILS % (AUTO) 0.8 % (0-1); EOSINOPHILS # (AUTO) 0.5 X10'3 (0-0.9); EOSINOPHILS % (AUTO) 5.9 % (0-6); HEMATOCRIT 38.8 % (42.0-52.0); HEMOGLOBIN 13.3 g/dl (14.0-17.9); LYMPHOCYTES # (AUTO) 2.8 X10'3 (1.1-4.8); LYMPHOCYTES % (AUTO) 33.5 % (21-51); MEAN CORPUSCULAR HEMOGLOBIN 30.6 PG (27.0-31.0); MEAN CORPUSCULAR HGB CONC 34.2 g/dL (33.0-36.5); MEAN CORPUSCULAR VOLUME 89.5 FL (78-98); MONOCYTES % (AUTO) 12.6 % (2-12); NEUTROPHILS # (AUTO) 3.9 X10'3 (1.8-7.7); NEUTROPHILS % (AUTO) 47.2 % (42-75); PLATELET COUNT 286 X10'3 (140-440); RED BLOOD COUNT 4.34 X10'6 (4.70-6.10); RED CELL DISTRIBUTION WIDTH 12.5 % (11.5-14.5); WHITE BLOOD COUNT 8.3 X10'3 (4.5-11.0)
[2021-03-26 23:21] LABS: ALANINE AMINOTRANSFERASE 25 U/L (12-78); ALBUMIN 3.6 G/DL (3.4-5.0); ALBUMIN/GLOBULIN RATIO 1.1 (1.1-1.5); ALKALINE PHOSPHATASE 69 IU/L (46-116); ANION GAP 4 (8-16); ASPARTATE AMINO TRANSFERASE 19 U/L (10-37); BILIRUBIN,TOTAL 0.4 MG/DL (0.1-1.0); BLOOD UREA NITROGEN 27 MG/DL (7-18); BUN/CREATININE RATIO 21.3 (5.4-32.0); CHLORIDE 105 MMOL/L (99-107); CREATININE 1.27 MG/DL (0.60-1.10); GLUCOSE 105 MG/DL (70-104); SODIUM 141 MMOL/L (135-145); TOTAL PROTEIN 6.9 G/DL (6.4-8.2); eGFR 59 ML/MIN
[2021-03-26 23:24] LABS: TROPONIN I < 0.04 NG/ML (0.0-0.05)
[2021-03-26 23:44] LABS: MAGNESIUM 2.2 MG/DL (1.5-2.4)
[2021-03-26 23:46] LABS: ETHANOL < 0.010 GM/DL (0.0-0.010)
[2021-03-27] MEDS ORDERED: carVEDilol 3.125mg tablet PO ONE (00:10)
[2021-03-27 00:13] LABS: URINE AMPHETAMINE SCREEN NEGATIVE (Neg); URINE BARBITUATE SCREEN NEGATIVE (Neg); URINE BENZODIAZEPINES SCREEN NEGATIVE (Neg); URINE CANNABINOID SCREEN NEGATIVE (Neg); URINE COCAINE SCREEN NEGATIVE (Neg); URINE METHADONE SCREEN NEGATIVE (Neg); URINE OPIATE SCREEN NEGATIVE (Neg); URINE PHENCYCLIDINE SCREEN NEGATIVE (Neg)
[2021-03-27 00:28] VITALS: BP 171/90
== END 2021-03-27 00:30 | disposition home or self-care (01) ==
LOC: ER 22:25
DX: R00.2 Palpitations (principal); R53.83 Other fatigue; I12.9 Hypertensive chronic kidney disease with stage 1 through stage 4 chronic kidney disease, or unspecified chronic kidney disease; N18.9 Chronic kidney disease, unspecified; F41.9 Anxiety disorder, unspecified; Z60.2 Problems related to living alone; Z88.2 Allergy status to sulfonamides; Z79.82 Long term (current) use of aspirin; Z79.2 Long term (current) use of antibiotics; Z79.899 Other long term (current) drug therapy
CPT/HCPCS: 36415; 71045; 80053; 80305; 80320; 83735; 83880; 84484; 85025; 93005; 99285

== ENCOUNTER 2023-02-09 00:16 | Emergency (ER) | payer MEDICAID ==
[~2023-02-09] VITALS: Ht 177.8 cm; Wt 77.3 kg
[~2023-02-09 00:16] MED LIST changes: +LEVO-65 PO; -LEVO500T89 PO
[2023-02-09 00:29] LABS: BASOPHILS # (AUTO) 0.1 X10'3 (0-0.2); BASOPHILS % (AUTO) 0.5 % (0-1); EOSINOPHILS # (AUTO) 0.5 X10'3 (0-0.9); EOSINOPHILS % (AUTO) 4.2 % (0-6); HEMATOCRIT 43.9 % (42.0-52.0); HEMOGLOBIN 14.6 g/dl (14.0-17.9); LYMPHOCYTES # (AUTO) 1.8 X10'3 (1.1-4.8); LYMPHOCYTES % (AUTO) 16.5 % (21-51); MEAN CORPUSCULAR HEMOGLOBIN 28.4 PG (27.0-31.0); MEAN CORPUSCULAR HGB CONC 33.4 g/dL (33.0-36.5); MEAN CORPUSCULAR VOLUME 85.1 FL (78-98); MEAN PLATELET VOLUME 7.9 FL (7.4-10.4); MONOCYTES # (AUTO) 1.1 X10'3 (0-0.9); MONOCYTES % (AUTO) 9.5 % (2-12); NEUTROPHILS # (AUTO) 7.7 X10'3 (1.8-7.7); NEUTROPHILS % (AUTO) 69.3 % (42-75); PLATELET COUNT 258 X10'3 (140-440); RED BLOOD COUNT 5.16 X10'6 (4.70-6.10); RED CELL DISTRIBUTION WIDTH 14.4 % (11.5-14.5); WHITE BLOOD COUNT 11.2 X10'3 (4.5-11.0)
[2023-02-09 00:41] VITALS: BP 182/121
[2023-02-09 00:45] LABS: ALANINE AMINOTRANSFERASE 23 U/L (12-78); ALKALINE PHOSPHATASE 66 IU/L (46-116); ANION GAP 7 (8-16); ASPARTATE AMINO TRANSFERASE 10 U/L (10-37); BILIRUBIN,TOTAL 0.7 MG/DL (0.1-1.0); BLOOD UREA NITROGEN 18 MG/DL (7-18); BUN/CREATININE RATIO 16.1 (10.0-20.0); CALCIUM 9.5 MG/DL (8.5-10.1); CHLORIDE 103 MMOL/L (99-107); CREATININE 1.12 MG/DL (0.60-1.10); GLUCOSE 118 MG/DL (70-104); POTASSIUM 3.7 MMOL/L (3.5-5.1); SODIUM 140 MMOL/L (135-145); TOTAL PROTEIN 7.9 G/DL (6.4-8.2); eGFR 67 ML/MIN
[2023-02-09 00:52] LABS: MAGNESIUM 2.2 MG/DL (1.5-2.4)
== END 2023-02-09 04:19 | disposition left against medical advice (07) ==
LOC: ER 00:17
DX: R00.2 Palpitations (principal); Z53.21 Procedure and treatment not carried out due to patient leaving prior to being seen by health care provider; Z79.899 Other long term (current) drug therapy
CPT/HCPCS: 36415; 71045; 80053; 83735; 83880; 84484; 85025; 93005; 99281

== ENCOUNTER 2023-02-09 07:00 | Emergency (ER) | payer MEDICAID ==
[~2023-02-09] VITALS: Ht 177.8 cm; Wt 77.3 kg
[2023-02-09 07:28] VITALS: BP 147/102
== END 2023-02-09 08:44 | disposition left against medical advice (07) ==
LOC: ER 07:01
DX: I10 Essential (primary) hypertension (principal); R51.9 Headache, unspecified; Z53.21 Procedure and treatment not carried out due to patient leaving prior to being seen by health care provider
CPT/HCPCS: 99281